=== PATIENT | male | born 2000 | race African-American/Black ===

== ENCOUNTER 2018-03-11 12:02 | Outpatient (CLI) | payer OTHER ==
--- NOTE | 2018-03-11 13:16 | RAD ---
LUMBAR SPINE 2 VIEWS: Date: 02/19/18 HISTORY: Low back pain. FINDINGS/IMPRESSION: No fracture, subluxation, or bone destruction is identified. POS: [facility]
== END 2018-03-11 12:03 | disposition home or self-care (01) ==
LOC: SCSRAD 12:02
PROVIDERS: ATTEND Family Medicine
DX: M54.5 Low back pain (principal)
CPT/HCPCS: 72100